=== PATIENT | female | born 1990 | race Caucasian/White ===

== ENCOUNTER 2022-03-08 20:35 | Observation (INO) | payer MEDICAID ==
[~2022-03-08] VITALS: Ht 157.5 cm; Wt 73.9 kg
[2022-03-08] MEDS ORDERED: PREN1TAB78 PO (22:25)
== END 2022-03-08 23:15 | disposition home or self-care (01) ==
LOC: 8 EST LDRP 20:35
PROVIDERS: ADMIT Obstetrics & Gynecology; ATTEND Obstetrics & Gynecology
DX: O26.893 Other specified pregnancy related conditions, third trimester (principal); R10.10 Upper abdominal pain, unspecified; Z3A.29 29 weeks gestation of pregnancy
CPT/HCPCS: 59025; G0378; 99281